=== PATIENT | female | born 1995 | race Two or more races ===

== ENCOUNTER 2020-02-26 16:03 | Outpatient (CLI) | payer MEDICAID ==
[~2020-02-26] VITALS: Ht 160 cm; Wt 109.0 kg
[2020-02-26 16:13] VITALS: BP 131/77
== END 2020-02-26 19:35 | disposition home or self-care (01) ==
LOC: LDOP 16:03
PROVIDERS: ATTEND Obstetrics & Gynecology
DX: O36.8130 Decreased fetal movements, third trimester, not applicable or unspecified (principal); Z3A.29 29 weeks gestation of pregnancy
CPT/HCPCS: 59025; 76819

== ENCOUNTER 2020-05-04 01:52 | Inpatient (IN) | payer MEDICAID ==
[~2020-05-04] VITALS: Ht 160 cm; Wt 112.0 kg
[2020-05-04 02:22] VITALS: BP 124/74
[2020-05-04] MEDS ORDERED: OXYTOCIN 30U/ 0.9% NaCL 500ML 500 ML ONE (02:36)
[2020-05-04] MEDS ORDERED: MISOPROSTOL 200 MCG TABLET ONE (02:36)
[2020-05-04] MEDS ORDERED: NEWBORN KIT ONE (02:36)
[2020-05-04] MEDS ORDERED: LIDOCAINE 1%, 20ML ONE (02:36)
[2020-05-04] MEDS ORDERED: FENTANYL PF 100 MCG/2ML IVPush PRN (03:00)
[2020-05-04] MEDS ORDERED: METOCLOPRAMIDE 5 MG/ML, 2ML IVPush PRN (03:00)
[2020-05-04] MEDS ORDERED: OXYTOCIN 30U/ 0.9% NaCL 500ML 500 ML IV ONE (03:00)
[2020-05-04] MEDS ORDERED: TERBUTALINE 1 MG/ML, 1ML IVPush PRN (03:00)
[2020-05-04] MEDS ORDERED: FENTANYL PF 100 MCG/2ML IV PRN (03:00)
[2020-05-04] MEDS ORDERED: ONDANSETRON 2MG/ML, 2ML IVPush PRN (03:00)
[2020-05-04] MEDS ORDERED: CALCIUM CARBONATE 500 MG TAB.CHEW PO PRN ×2 (03:00→06:30)
[2020-05-04] MEDS ORDERED: TERBUTALINE 1 MG/ML, 1ML SQ PRN (03:00)
[2020-05-04] MEDS ORDERED: LACTATED RINGERS 1,000 ML IV SCH (03:00)
[2020-05-04] MEDS ORDERED: D5%-LACTATED RINGERS 1,000 ML IV SCH (03:00)
[2020-05-04] MEDS ORDERED: OXYTOCIN 30U/ 0.9% NaCL 500ML 500 ML IV PRN (03:00)
[2020-05-04 03:13] LABS: BASOPHILS % (AUTO) 0 % (0-1); EOSINOPHILS % (AUTO) 0 % (1-7); LYMPHOCYTES % (AUTO) 16 % (22-44); MD NO; MEAN CORPUSCULAR HEMOGLOBIN 30.1 pg (27.0-34.8); MEAN CORPUSCULAR HGB CONC 32.7 g/dL (32.4-35.8); MEAN PLATELET VOLUME 9.3 fL (7.4-10.4); MONOCYTES % (AUTO) 4 % (2-9); NEUTROPHILS % (AUTO) 80 % (42-75); PLATELET COUNT 317 x10^3/uL (130-400); RED BLOOD COUNT 4.53 x10^6/uL (3.82-5.3); RED CELL DISTRIBUTION WIDTH 15.6 % (9.6-15.2)
[2020-05-04 04:00] VITALS: BP 141/76
[2020-05-04] MEDS ORDERED: FENTANYL PF 100 MCG/2ML ONE (04:42)
[2020-05-04] MEDS ORDERED: FENTANYL/BUPIV./NS/PF 250 ML EPIDCONT SCH (05:00)
[2020-05-04] MEDS ORDERED: LACTATED RINGERS 1,000 ML IVBOLUS PRN (05:00)
[2020-05-04] MEDS ORDERED: SIMETHICONE 80 MG CHEW TAB PO PRN (06:30)
[2020-05-04] MEDS ORDERED: HYDROcodone/APAP 5/325 TABLET PO PRN ×2 (06:30)
[2020-05-04] MEDS ORDERED: MISOPROSTOL 200 MCG TABLET PR PRN (06:30)
[2020-05-04] MEDS ORDERED: ACETAMINOPHEN 325 MG TABLET PO PRN ×2 (06:30)
[2020-05-04] MEDS ORDERED: OXYTOCIN 30U/ 0.9% NaCL 500ML 500 ML IV SCH (06:30)
[2020-05-04] MEDS: OXYTOCIN 30U/ 0.9% NaCL 500ML 500 ML IV SCH ×2 (06:30→16:30)
[2020-05-04] MEDS ORDERED: BISACODYL 10 MG SUPP PR PRN (06:30)
[2020-05-04] MEDS ORDERED: ONDANSETRON 2MG/ML, 2ML IV PRN (06:30)
[2020-05-04 08:57] VITALS: BP 122/74
[2020-05-04] MEDS: DOCUSATE 100 MG CAPSULE PO PRN (09:03)
[2020-05-04] MEDS: IBUPROFEN 600 MG TABLET PO PRN ×2 (09:03→15:41)
[2020-05-04] MEDS: PRENATAL VIT/IRON/FA 1 EACH TABLET PO SCH (09:03)
[2020-05-04 13:00] VITALS: BP 116/78
[2020-05-04 14:55] LABS: BASOPHILS % (AUTO) 0 % (0-1); EOSINOPHILS % (AUTO) 0 % (1-7); LYMPHOCYTES % (AUTO) 15 % (22-44); MEAN CORPUSCULAR HEMOGLOBIN 29.7 pg (27.0-34.8); MEAN CORPUSCULAR HGB CONC 32.2 g/dL (32.4-35.8); MEAN PLATELET VOLUME 9.7 fL (7.4-10.4); MONOCYTES % (AUTO) 3 % (2-9); NEUTROPHILS % (AUTO) 81 % (42-75); PLATELET COUNT 309 x10^3/uL (130-400); RED BLOOD COUNT 4.09 x10^6/uL (3.82-5.3); RED CELL DISTRIBUTION WIDTH 15.8 % (9.6-15.2)
[2020-05-04 15:44] LABS: MD SCAN
[2020-05-04 17:09] VITALS: BP 124/81
[2020-05-04 19:45] VITALS: BP 119/74
[2020-05-05 00:20] VITALS: BP 109/71
[2020-05-05] MEDS: IBUPROFEN 600 MG TABLET PO PRN ×2 (00:21→09:00)
[2020-05-05] MEDS: OXYTOCIN 30U/ 0.9% NaCL 500ML 500 ML IV SCH (02:30)
[2020-05-05 04:16] VITALS: BP 115/71
[2020-05-05 08:01] VITALS: BP_SYST 104; BP_SYST 116; BP_DIAS 64; BP_DIAS 67
[2020-05-05] MEDS: PRENATAL VIT/IRON/FA 1 EACH TABLET PO SCH (08:59)
[2020-05-05] MEDS: DOCUSATE 100 MG CAPSULE PO PRN (08:59)
[2020-05-05] MEDS ORDERED: IBUP-1222 PO (09:07)
== END 2020-05-05 12:30 | disposition home or self-care (01) | DRG 807 ==
LOC: LDOP 01:52 → LDIP 02:48 → 2NW 07:37
PROVIDERS: ADMIT Obstetrics & Gynecology; ATTEND Obstetrics & Gynecology
PROC: 10E0XZZ Delivery of Products of Conception, External Approach (ICD-10-PCS; principal; 2020-05-04)
PROC: 0KQM0ZZ Repair Perineum Muscle, Open Approach (ICD-10-PCS; 2020-05-04)
DX: O69.81X0 Labor and delivery complicated by cord around neck, without compression, not applicable or unspecified (principal); Z37.0 Single live birth; O70.1 Second degree perineal laceration during delivery; Z3A.39 39 weeks gestation of pregnancy
CPT/HCPCS: 36415; 85025; 86592; 86850; 86900; 87635; 89060; G0378; J3010; J7120; Q0114

== ENCOUNTER 2020-05-26 17:47 | Emergency (ER) | payer MEDICAID ==
[~2020-05-26] VITALS: Ht 160 cm; Wt 103.0 kg
[~2020-05-26 17:47] MED LIST: IBUP-1222 PO
[2020-05-26 19:55] LABS: BASOPHILS % (AUTO) 0 % (0-1); EOSINOPHILS % (AUTO) 0 % (1-7); LYMPHOCYTES % (AUTO) 8 % (22-44); MEAN CORPUSCULAR HEMOGLOBIN 29.6 pg (27.0-34.8); MEAN PLATELET VOLUME 8.9 fL (7.4-10.4); MONOCYTES % (AUTO) 3 % (2-9); NEUTROPHILS % (AUTO) 89 % (42-75); PLATELET COUNT 471 x10^3/uL (130-400); RED BLOOD COUNT 4.91 x10^6/uL (3.82-5.3); RED CELL DISTRIBUTION WIDTH 14.6 % (9.6-15.2)
--- NOTE | 2020-05-26 19:59 | NUR ---
pt called to room from lobby
[2020-05-26 20:07] LABS: ALANINE AMINOTRANSFERASE 66 U/L (12-78); ALBUMIN 3.8 g/dL (3.4-5.0); ANION GAP 5 mmol/L (5-15); CALCIUM 8.8 mg/dL (8.5-10.1); CHLORIDE 107 mmol/L (98-107); CREATININE 0.78 mg/dL (0.55-1.02)
[2020-05-26 20:12] LABS: ALKALINE PHOSPHATASE 124 U/L (45-117); BILIRUBIN,TOTAL 0.6 mg/dL (0.2-1.0); TOTAL PROTEIN 7.7 g/dL (6.4-8.2)
[2020-05-26 20:25] LABS: MD SCAN
[2020-05-26] MEDS ORDERED: KETOROLAC 30 MG/1 ML IM ONE (20:30)
[2020-05-26 20:35] LABS: MICROSCOPIC INDICATED
--- NOTE | 2020-05-26 21:15 | NUR ---
THIS RN AT BEDSIDE WITH MD DURING US TO VISUALIZE THE GALLBLADDER.
[2020-05-26] MEDS ORDERED: HYDROcodone/APAP 5/325 TABLET PO ONE (22:00)
[2020-05-26] MEDS ORDERED: CEFTRIAXONE 1,000 MG ONE (22:30)
[2020-05-26] MEDS ORDERED: CEFTRIAXONE 1,000 MG IM ONE (22:30)
[2020-05-26] MEDS ORDERED: HYDROcodone/APAP 5/325 TABLET ONE (22:31)
[2020-05-26 23:39] VITALS: BP 123/77
--- NOTE | 2020-05-26 23:40 | NUR ---
TASK RN: Patient given discharge instructions and they have confirmed that they understand the instructions. Patient ambulatory with steady gait. NAD, DENIES ADDITIONAL QUESTIONS OR NEEDS AT THIS TIME. NO PERSONAL BELONGINGS LEFT IN ROOM AT TIME OF DC.
== END 2020-05-26 23:42 | disposition home or self-care (01) ==
LOC: ED 21:13
DX: O99.63 Diseases of the digestive system complicating the puerperium (principal); O86.21 Infection of kidney following delivery; K80.20 Calculus of gallbladder without cholecystitis without obstruction; R94.31 Abnormal electrocardiogram [ECG] [EKG]
CPT/HCPCS: 36415; 76700; 80053; 81001; 83690; 84703; 85025; 87086; 93005; 96372; 99285; J0696; J1885

== ENCOUNTER 2020-06-14 16:01 | Observation (INO) | payer MEDICAID ==
[~2020-06-14] VITALS: Ht 160 cm; Wt 101.5 kg
[2020-06-14] MEDS ORDERED: HYDROmorphone 2 MG/ML, 1ML IVPush PRN (17:30)
[2020-06-14] MEDS ORDERED: ONDANSETRON 2MG/ML, 2ML IVPush ONE (17:30)
[2020-06-14] MEDS ORDERED: SODIUM CHLORIDE FLUSH 10ML SYR IVF ONE (17:30)
--- NOTE | 2020-06-14 17:30 | NUR ---
PT HAS CO ABDOMINAL PAIN, RUQ. HX OF GALLSTONES 3 WEEKS AGO. PAIN CAME BACK. DENIES N/V
[2020-06-14] MEDS ORDERED: HYDROmorphone 2 MG/ML, 1ML ONE (17:43)
[2020-06-14] MEDS ORDERED: ONDANSETRON 2MG/ML, 2ML ONE ×2 (17:43→20:57)
--- NOTE | 2020-06-14 18:08 | NUR ---
MEDICATED PER ORDERS, IV AND LABS ESTABLISHED.
[2020-06-14 18:13] LABS: MEAN CORPUSCULAR HEMOGLOBIN 30.5 pg (27.0-34.8); MEAN PLATELET VOLUME 8.6 fL (7.4-10.4); PLATELET COUNT 461 x10^3/uL (130-400); RED BLOOD COUNT 4.58 x10^6/uL (3.82-5.3); RED CELL DISTRIBUTION WIDTH 14.1 % (9.6-15.2)
[2020-06-14 18:21] LABS: MD YES
[2020-06-14 18:23] LABS: ALANINE AMINOTRANSFERASE 87 U/L (12-78); ALBUMIN 3.9 g/dL (3.4-5.0); CALCIUM 8.9 mg/dL (8.5-10.1); CREATININE 0.85 mg/dL (0.55-1.02)
[2020-06-14 18:28] LABS: ALKALINE PHOSPHATASE 131 U/L (45-117); BILIRUBIN,TOTAL 0.7 mg/dL (0.2-1.0); TOTAL PROTEIN 7.8 g/dL (6.4-8.2)
[2020-06-14 18:32] LABS: ANION GAP 7 mmol/L (5-15); CHLORIDE 109 mmol/L (98-107)
[2020-06-14 19:01] LABS: MICROSCOPIC INDICATED
--- NOTE | 2020-06-14 19:09 | NUR ---
Report from MARCUS Darden. Pt laying in bed, sleeping, respirations even and unlabored. All needs met at this time, updated on POC.
--- NOTE | 2020-06-14 19:34 | NUR ---
REPORT TO OR, RN.
[2020-06-14] MEDS ORDERED: BUPIVACAINE/PF 0.25% ONE (19:38)
[2020-06-14 19:46] LABS: BAND#(MANUAL) 1.23 x10^3/uL; BANDS%(MANUAL) 7 % (0-7); EOS#(MANUAL) 0.18 x10^3/uL (0.0-0.4); EOS% (MANUAL) 1 % (1-7); LYMPH#(MANUAL) 1.75 x10^3/uL (1-3.4); LYMPHS% (MANUAL) 10 % (22-44); MONOS#(MANUAL) 0.53 x10^3/uL (0.3-2.7); MONOS% (MANUAL) 3 % (2-9); SEG#(MANUAL) 13.83 x10^3/uL (1.8-6.8); SEGS% (MANUAL) 79 % (42-75)
[2020-06-14 19:48] LABS: <PLATELET ESTIMATE> INCREASED; <PLT MORPHOLOGY> NORMAL PLT MORPH; <RBC MORPHOLOGY> NORMAL
[2020-06-14] MEDS ORDERED: SODIUM CHLORIDE FLUSH 10ML SYR IVF PRN (20:00)
[2020-06-14] MEDS ORDERED: FENTANYL PF 100 MCG/2ML ONE ×2 (20:38→20:49)
[2020-06-14] MEDS ORDERED: LIDOCAINE-MPF 2% ,5ML ONE ×3 (20:39→21:03)
[2020-06-14] MEDS ORDERED: MIDAZOLAM 1 MG/ML, 2ML ONE (20:39)
[2020-06-14] MEDS ORDERED: CEFOTETAN 2 GM ONE (20:40)
[2020-06-14] MEDS ORDERED: OXYcodone 5 MG/5 ML ORAL.SOL UDC ONE (20:49)
[2020-06-14] MEDS ORDERED: ROCURONIUM 10MG/ML,5ML ONE (20:57)
[2020-06-14] MEDS ORDERED: PROPOFOL 10 MG/ML, 20ML ONE (20:57)
[2020-06-14] MEDS ORDERED: SUCCINYLCHOLINE 20 MG/ML, 10ML ONE (20:57)
[2020-06-14] MEDS ORDERED: DEXAMETHASONE 4 MG/ML, 1ML ONE (20:57)
[2020-06-14] MEDS ORDERED: MEPERIDINE/PF 25MG/0.5ML IVPush PRN (21:00)
[2020-06-14] MEDS ORDERED: METHOCARBAMOL 1,000 MG in DEXTROSE 5% 100 ML IV PRN (21:00)
[2020-06-14] MEDS ORDERED: PROMETHAZINE 25 MG/ML, 1ML IVPush PRN (21:00)
[2020-06-14] MEDS ORDERED: LORazepam 2 MG/ML, 1ML IVPush PRN (21:00)
[2020-06-14] MEDS ORDERED: OXYcodone 5 MG/5 ML ORAL.SOL UDC PO PRN (21:00)
[2020-06-14] MEDS ORDERED: HYDROmorphone 1 MG/ML, 1ML INJ IVPush PRN (21:00)
[2020-06-14] MEDS ORDERED: ACETAMINOPHEN 325 MG TABLET PO PRN (21:00)
[2020-06-14] MEDS ORDERED: KETOROLAC 30 MG/1 ML ONE (21:03)
[2020-06-14] MEDS ORDERED: SUGAMMADEX 200 MG/2 ML IVPush ONE (21:03)
[2020-06-14] MEDS: FENTANYL PF 100 MCG/2ML IV PRN ×3 (21:36→21:52)
[2020-06-14] MEDS ORDERED: HYDR-3240 PO (22:27)
[2020-06-14] MEDS ORDERED: HYDROcodone/APAP 5/325 TABLET PO PRN (22:30)
[2020-06-14] MEDS ORDERED: MORPHINE SULFATE 4 MG/ML, 1ML IVPush PRN (22:30)
[2020-06-14] MEDS ORDERED: ONDANSETRON 2MG/ML, 2ML IVPush PRN (22:30)
[2020-06-14] MEDS ORDERED: LACTATED RINGERS 1,000 ML IV SCH (22:30)
[2020-06-14 23:16] VITALS: BP 120/73
== END 2020-06-14 23:20 | disposition home or self-care (01) ==
LOC: ED 17:28 → INTOOBSV 19:53 → EDIP 19:53 → 4NE 22:09
PROVIDERS: ADMIT Surgery; ATTEND Surgery
DX: K80.00 Calculus of gallbladder with acute cholecystitis without obstruction (principal); Z20.828 Contact with and (suspected) exposure to other viral communicable diseases; K76.0 Fatty (change of) liver, not elsewhere classified; D72.829 Elevated white blood cell count, unspecified; Z79.899 Other long term (current) drug therapy
CPT/HCPCS: 36415; 47562; 71045; 76700; 80053; 81001; 83690; 84703; 85025; 87086; 87635; 88304; 96374; 96375; 99285; G0378; J0330; J1100; J1170; J1885; J2250; J2405; J2704; J2800; J3010; J3490